=== PATIENT | female | born 1955 | race Caucasian/White ===

== ENCOUNTER 2016-03-24 17:19 | Emergency (ER) | payer BC ==
[~2016-03-24] VITALS: Ht 176.5 cm; Wt 90.9 kg
[~2016-03-24 17:19] MED LIST: AGM875T PO; BUTA-234 PO; CTLP20T; DIPH50CA33 PO; ESOM20SU; EST5V5 IM; FAMO-119 PO; GABA300S2 PO; HYDR-3714 PO; LEVO250T7 PO; PHEN200T27 PO; PNT40TEC PO; PRAV40TA PO; PRED20TA PO; PREG75CA; PREG75CA PO; PROP1TAB77 PO; RNT150T PO; SCR1T PO; SRTR100T PO; SUCR1ORA5 PO; TRAM50TA2 PO
[2016-03-24] MEDS ORDERED: OFLO5DRO7 OT (18:26)
[2016-03-24] MEDS ORDERED: HYDR-3812 PO (18:26)
--- NOTE | 2016-03-24 18:27 | ED EENT ---
History of Present Illness General Chief Complaint: Ear Problems Stated Complaint: RT EAR PAIN Nursing Triage Note: PT. HAS BEEN SICK SINCE LAST THURSDAY WITH WHAT SHE THOUGHT WAS FLU LIKE SXS. STATED SHE WENT TO [facility] TODAY ET THEY PUT HER ON AUGMENTIN. WENT HOME AND HAD REALLY BAD PAIN ET HEARD GURGLING SOUND IN HER R-EAR. PT. STATES SHE WENT BACK TO [facility] ET WAS SENT HERE. PT. STATES SHE CANNOT HEAR FROM THAT EAR. BLOODY DRAINAGE NOTED TO EAR. PT. DOES GET DIZZY WHEN WALKING. Source: patient Exam Limitations: no limitations History of Present Illness Time seen by provider: 18:15 Initial Comments 61 yo female patient presents to the ED with c/o rt ear pain. patient states she has not felt well since last Thursday. Patient was seen earlier today at [facility] and placed on augmentin. Patient reports this evening heard a "gurgling sound" in the right ear with severe pain. Patient states she went back to [facility] and was sent to the emergency department. Reports decreased hearing in the right ear as well as bloody drainage. Does complain of dizziness with ambulation. Timing/Duration: abrupt (sudden onset of severe rt ear pain.), this evening, last week Location: ear (R) Prearrival Treatment: over the counter meds, prescription meds Presenting Symptoms/Injuries: rt ear pain with bloody drainage. Modifying Factors: Worse With Other (palpation) Allergies and Home Medications Allergies Coded Allergies: butorphanol (Unverified Allergy, Mild, 06/16/09) sulfamethoxazole (Unverified Allergy, Mild, 06/16/09) trimethoprim (Unverified Allergy, Mild, 06/16/09) Home Medications Estradiol Cypionate 25 Mg/5 Ml Inj 25 MG IM UD (Reported) Famotidine 20 Mg Tablet #60 20 MG PO BID Prescribed by: NATHALY VINCENT on 04/13/152028 Gabapentin 300 Mg/6 Ml Solution 300 MG PO TID (Reported) Hydrocodone/Acetaminophen 1 Each Tablet #20 1 EACH PO Q4H PRN PRN PAIN Prescribed by: NEYDA GONZALEZ on 03/24/161825 Ofloxacin 5 Ml Drops #1 10 DROPS OT DAILY 10 drops to the rt ear daily x7-10 days Prescribed by: NEYDA GONZALEZ on 03/24/161825 Sucralfate 1 Gm/10 Ml Oral.susp #120 1 GM PO AC Prescribed by: NATHALY VINCENT on 04/13/152028 Tramadol HCl 50 Mg Tablet #24 50-100 MG PO Q6H PRN PRN PAIN Prescribed by: NATHALY VINCENT on 04/13/152029 Review of Systems Constitutional: see HPI chills dizzinessNo fever, malaise Eyes: No Symptoms Reported Ears: See HPI Dizziness Pain Bloody Discharge Nose: congestiondenies pain Mouth: no symptoms reported Throat: no symptoms reported Respiratory: no symptoms reported Cardiovascular: no symptoms reported Gastrointestinal: no symptoms reported Musculoskeletal: no symptoms reported Skin: no symptoms reported Neurological: No Symptoms Reported All Other Systems Reviewed Negative Unless Noted: Yes (Negative excepted noted.) Past Ljottsi-Soqrpc-Xeckhn Hx Patient Social History Recent Foreign Travel: No Contact w/Someone Who Travel: No Recent Infectious Disease Expo: No Immunizations Up To Date Date of Influenza Vaccine: Dec 27, 2014 Seasonal Allergies Seasonal Allergies: Yes Surgeries HX Surgeries: Yes (BACK, BLADDER SLING) Surgeries: Bladder Surgery, Section, Gallbladder, Hysterectomy, Orthopedic Respiratory Hx Respiratory Disorders: No Cardiovascular Hx Cardiac Disorders: Yes (heart cath done-no problem) Neurological Hx Neurological Disorders: Yes Neurological Disorders: Headaches /Migraines Reproductive System Hx Reproductive Disorders: Yes Sexually 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 Genitourinary Hx Genitourinary Disorders: Yes (BLADDER ISSUES) Gastrointestinal Hx Gastrointestinal Disorders: Yes (ULCERS) Musculoskeletal Hx Musculoskeletal Disorders: Yes (FIBROMYALGIA) Endocrine Hx Endocrine Disorders: No HEENT HX ENT Disorders: No Cancer Hx Cancer: No Psychosocial Hx Psychiatric Problems: No Integumentary HX Skin/Integumentary Disorder: No Blood Transfusions Hx Blood Disorders: No Reviewed Nursing Assessment Reviewed/Agree w Nursing PMH: Yes Family Medical History Significant Family History: No Pertinent Family Hx Physical Exam Vital Signs General Appearance: WD/WN no apparent distress Eyes: bilateral eye EOMI, bilateral eye PERRL, bilateral eye normal inspection Ears: right ear bleeding (external ear canal filled with blood. TM not visible.), right ear other (TTP with movement of the auricle/tragus.), right ear tenderness, left ear TM normal, left ear canal normal, bilateral ear auricle normal Nose: normal inspection Mouth/Throat: normal mouth inspectionNo excessive drooling, No trismus, No uvula swelling, No voice changes, other ((+) pharyngeal erythema.) Neck: non-tender supple lymphadenopathy (R) lymphadenopathy (L) Cardiovascular: regular rate, rhythm no murmur Respiratory: lungs clear normal breath sounds no respiratory distress Neurologic/Psychiatric: alert normal mood/affect oriented x 3 Skin: normal color warm/dry Progress/Results/Core Measures Results/Orders Vital Signs/I&O Blood Pressure Mean: 105 Departure Communication Progress Notes Patient seen and evaluated. Proceed with discharge to home with continuing Augmentin as well as addition of hydrocodone and ofloxacin otic drops. Patient follow-up with her PCP as an outpatient for recheck. Impression Impression: Primary Impression: Right otitis media with spontaneous rupture of eardrum Disposition: HOME, SELF-CARE Condition: Improved Departure-Patient Inst. Decision time for Depature: 18:24 Referrals: HALI PATHAK MD,LOCAL PHYSICIAN (PCP) Primary Care Physician [facility] [place] Patient Instructions: Ruptured Eardrum (DC) Add. Discharge Instructions: All discharge instructions reviewed with patient and/or family. Voiced understanding. Medications as instructed. Ibuprofen 800 mg by mouth every 8 hours as needed for pain. Avoid water or cold air in the right ear. Heating pad or pack if needed for pain. Follow-up with Dr. Pathak or your primary care physician for recheck. Return to the emergency department for worsened pain, drainage, fever, headache, or any other concerns. Scripts Hydrocodone/Acetaminophen (Hydrocodon -Acetaminophen 5-325)1 Each Tablet1 Each PO Q4H PRN PAIN #20 TAB Ref 0 Prov:NEYDA GONZALEZ 03/24/16 Ofloxacin 5 Ml Drops10 Drops OT DAILY #1 EA Ref 0 10 drops to the rt ear daily x7-10 days Prov:NEYDA GONZALEZ 03/24/16 Work/School Note: Work Release Form Date Seen in the Emergency Department: Mar 24, 2016 Return to Work: Mar 27, 2016 NEYDA GONZALEZ Mar 24, 2016 18:27
[2016-03-24 18:33] VITALS: BP 156/80
== END 2016-03-24 18:35 | disposition home or self-care (01) ==
LOC: EDUNIT# 17:19 → ER 17:21
DX: H66.011 Acute suppurative otitis media with spontaneous rupture of ear drum, right ear (principal)
CPT/HCPCS: 99282

== ENCOUNTER → 2016-04-07 | Outpatient (CLI) | payer BC ==
[~2016-04-07] MED LIST changes: +CATHETER FLUSH 10 ML SYR IV PRN; +HYDR-3812 PO; +IOHEXOL 350 MG/ML 100 ML (OMNIPAQUE 350) VIAL IV ONE; +NS 100 ML (IVPB) BAG IV ONE; +OFLO5DRO7 OT
[2016-04-07 11:52] LABS: BLOOD UREA NITROGEN 14 MG/DL (7-18); BUN/CREATININE RATIO 20; CREATININE SERUM 0.69 MG/DL (0.60-1.30); GFR ESTIMATED > 60
--- NOTE | 2016-04-07 13:18 | Diagnostic Imaging Report ---
PROCEDURE: CT head and IAC with and without contrast. TECHNIQUE: Multiple contiguous axial images were obtained through the brain before and after the administration of intravenous contrast. In addition, pre- and post-contrast images with thin sections are performed along the IAC with axial and coronal reconstructions performed. INDICATION: Right ear perforation. Dizziness and nausea. CONTRAST: 80 mL of Omnipaque 350 is administered intravenously. FINDINGS: CT head: There is no intracranial hemorrhage, edema, or mass effect. The brain parenchyma and boyd-white matter differentiation is preserved. There is a nonspecific hypodensity measuring 8 mm in the left basal ganglia which may relate to a perivascular space. The phase obtained after contrast administration demonstrates no enhancing mass in the brain or the extra-axial space. The calvarium appears grossly unremarkable. CT IAC: There is opacification in the mastoid air cells on the right side and mild opacification within the right middle ear cavity around the ossicles. There is no significant erosion demonstrated in the ossicles or within the other osseous structures in the right mastoid air cells and the inner ears. There is no evidence of dehiscence along the jugular or carotid canals with preserved osseous separation. No high-riding variation of the jugular bulb on either side either. There is no obvious enhancement noted after contrast administration in the soft tissue densities within the mastoid air cells and middle ear cavities. The internal auditory canals, the semicircular canals, the cochlea, and the vestibule all appear symmetric. To a lesser extent, similar findings in the left mastoid air cells and the middle ear cavity where the mucosal thickening is seen. The external auditory canals on both sides appear clear and patent. There is minimal thickening of the tympanic membrane, however, on the right side. IMPRESSION: There is partial opacification of the mastoid air cells and middle ear cavities around the ossicles on both sides but more prominent on the right side with associated mild thickening in the right tympanic membrane. No bony or ossicle erosions. The findings are likely related to mastoiditis and otitis media. Correlate clinically. Dictated by: Dictated on workstation # [id number]
== END ==
LOC: RAD 10:56
PROVIDERS: ATTEND Otolaryngology Otolaryngology/Facial Plastic Surgery
DX: H92.21 Otorrhagia, right ear (principal)
CPT/HCPCS: 36415; 70470; 82565; 84520

== ENCOUNTER → 2016-09-19 | Outpatient (CLI) | payer BC ==
[~2016-09-19] MED LIST changes: -CATHETER FLUSH 10 ML SYR IV PRN; +GADOBUTROL 10 MMOL/10 ML (GADAVIST) VIAL IV ONE; -IOHEXOL 350 MG/ML 100 ML (OMNIPAQUE 350) VIAL IV ONE; -NS 100 ML (IVPB) BAG IV ONE
--- NOTE | 2016-09-19 16:18 | Diagnostic Imaging Report ---
INDICATION: Back pain with bilateral leg pain and numbness, history of previous lumbar surgery. MRI of lumbar spine obtained pre and post IV contrast and compared to 12/17/11. FINDINGS: Patient has had previous lumbar fusion posteriorly at L4-L5, with disc prosthesis. The lumbar vertebrae are normal in height and alignment. There is no subluxation. Conus medullaris and cauda equina appear unremarkable. At L5-S1, there is some facet degenerative change and ligamentum flavum prominence. These findings do not cause significant canal stenosis. There is perhaps minimal disc bulging. At L4-L5, there has been prior fusion as above with disc prosthesis. The canal appears widely patent at the L4-L5 level with no canal or neuroforaminal stenosis. At L3-L4, there is high-grade central canal stenosis with minimal canal diameter of about 5-6 mm. There is facet joint hypertrophy with ligamentum prominence as well as diffuse disc bulging. At L2-L3, L1-L2 and T12-L1, imaging was unremarkable. Postcontrast images demonstrate no abnormal contrast-enhancing lesions. IMPRESSION: Postoperative changes at L4-L5 with no significant recurrent canal stenosis at the L4-L5 level. There is, however, significant canal stenosis at L3-L4 due to disc bulge and facet joint hypertrophy and ligamentum flavum prominence. Remaining levels were unremarkable, except for some mild degenerative changes at L5-S1. Dictated by: Dictated on workstation # [id number]
== END ==
LOC: RAD 10:14
PROVIDERS: ATTEND Nurse Practitioner Family
DX: M48.06 Spinal stenosis, lumbar region (principal); Z98.890 Other specified postprocedural states
CPT/HCPCS: 72158

== ENCOUNTER 2019-05-03 14:00 | Outpatient (CLI) | payer BC ==
[~2019-05-03] VITALS: Ht 175 cm; Wt 95.4 kg
[~2019-05-03 14:00] MED LIST changes: +ACHD5005 PO; -GADOBUTROL 10 MMOL/10 ML (GADAVIST) VIAL IV ONE; -HYDR-3812 PO; +OFLO5DRO33 OT; -OFLO5DRO7 OT; -TRAM50TA2 PO; +TRM50T PO
[2019-05-03] MEDS ORDERED: GBPN600T PO (14:14)
[2019-05-03] MEDS ORDERED: TRIA1CAP4 PO (14:14)
[2019-05-03] MEDS ORDERED: BUTA1CAP41 PO (14:14)
[2019-05-03] MEDS ORDERED: OMEP20TA33 PO (14:14)
== END 2019-05-03 15:22 | disposition home or self-care (01) ==
LOC: PREOP 14:00
PROVIDERS: ATTEND Surgery
DX: Z01.818 Encounter for other preprocedural examination (principal)

== ENCOUNTER 2019-11-23 05:45 | Outpatient (CLI) | payer BC ==
[~2019-11-23] VITALS: Ht 175.3 cm; Wt 100.0 kg
[~2019-11-23 05:45] MED LIST changes: +BUTA1CAP41 PO; +GBPN600T PO; +OMEP20TA33 PO; +TRIA1CAP4 PO
[2019-11-23] MEDS ORDERED: GABA300C PO ×2 (14:02)
[2019-11-23] MEDS ORDERED: HYDR25TA4 PO ×2 (14:02)
== END 2019-11-23 14:07 ==
LOC: PREOP 05:45
PROVIDERS: ATTEND Specialist
DX: Z01.818 Encounter for other preprocedural examination (principal)

== ENCOUNTER 2019-11-25 06:05 | Day surgery (SDC) | payer BC ==
[~2019-11-25] VITALS: Ht 180.3 cm; Wt 100.0 kg
[~2019-11-25 06:05] MED LIST changes: +GABA300C PO; +HYDR25TA4 PO
[2019-11-25] MEDS ORDERED: TIMOLOL MALEATE 0.5% 5 ML (TIMOPTIC) BTL OU PRN (06:15)
[2019-11-25] MEDS ORDERED: LIDOCAINE PF 1% 2 ML VIAL IR PRN (06:15)
[2019-11-25] MEDS ORDERED: MOXIFLOXACIN OPHTH SOLN 5 MG/ML 0.3 ML SYRINGE OP ONE (06:15)
[2019-11-25] MEDS ORDERED: POVIDONE (BETADINE) OPHTH SOLN 5% 30 ML OP ONE (06:15)
[2019-11-25 06:24] VITALS: BP 153/80
[2019-11-25] MEDS ORDERED: ONDANSETRON 4 MG/2 ML (SDV) Z0FRAN ONE (06:25)
[2019-11-25] MEDS: TETRACAINE 0.5% OPHTH SOLN 4 ML BTL (SINGLE DOSE ONLY) OU PRN ×4 (06:27→06:59)
[2019-11-25] MEDS ORDERED: ONDANSETRON 4 MG/2 ML (SDV) Z0FRAN IV ONE (06:30)
[2019-11-25] MEDS ORDERED: MIDAZOLAM 2 MG/2 ML (VERSED) VIAL ONE ×3 (06:36→06:43)
[2019-11-25] MEDS: CYCLOPENTOLATE 1% (CYCLOGYL) 2 ML DROPS OP SCH ×3 (06:43→06:59)
[2019-11-25] MEDS: PHENYLEPHRINE 10% OPHTH (NEO-SYN) 5 ML BTL OU SCH ×3 (06:43→06:59)
[2019-11-25] MEDS ORDERED: MIDAZOLAM 2 MG/2 ML (VERSED) VIAL IV ONE (06:45)
--- NOTE | 2019-11-25 06:58 | Ophthalmologist Pre-Op Note ---
Pre-Operative Progress Note H&P Reviewed The H&P was reviewed, patient examined and no changes noted. Date H&P Reviewed: Nov 25, 2019 Time H&P Reviewed: 06:57 Pre-Op Dx Cataract, Left Eye LUISA MATHEW MD Nov 25, 2019 06:58
--- NOTE | 2019-11-25 07:22 | Ophthalmology Operative Report ---
Cataract removal/placement IOL PREOPERATIVE DIAGNOSIS: Cataract Left Eye POSTOPERATIVE DIAGNOSIS: Cataract Left Eye PROCEDURE: Cataract removal and placement of posterior chamber implant, left eye SURGEON: Kevin Mathew ANESTHESIA: Topical with sedation COMPLICATIONS: None ESTIMATED BLOOD LOSS: Minimal DESCRIPTION OF PROCEDURE: After proper informed consent was obtained, the patient, a 64 female, was taken to the Operating Room and the left eye was anesthetized with tetracaine. The left eye was then prepped and draped in the usual manner. A wire lid speculum was placed. A paracentesis was made at the left hand position. Preservative free lidocaine was injected into the anterior chamber followed by viscoelastic. A clear corneal incision was made in the temporal position. A capsulorrhexis was preformed and the central nuclear and cortical material were removed. The posterior capsule was polished and an Liban 18.5 AU00T0 was placed into the capsular bag. The residual viscoelastic was aspirated and balanced saline solution was injected into the anterior chamber. Moxifloxacin was injected into the anterior chamber. The wound was checked and found to be water tight. The patient tolerated the procedure well without complications. KEVIN MATHEW MD Nov 25, 2019 07:22
[2019-11-25] MEDS ORDERED: acetaZOLAMIDE ER 500 MG CAP (DIAMOX SEQUELS) PO ONE (07:30)
[2019-11-25 07:31] VITALS: BP 137/80
--- NOTE | 2019-11-25 10:43 | Anesthesia-General Post-Op ---
MAC Patient Condition Mental Status/LOC: Same as Preop Cardiovascular: Satisfactory Nausea/Vomiting: Absent Respiratory: Satisfactory Pain: Controlled Complications: Absent Post Op Complications Complications None Follow Up Care/Instructions Patient Instructions None needed. Anesthesiology Discharge Order Discharge Order Patient is doing well, no complaints, stable vital signs, no apparent adverse anesthesia problems. No complications reported per nursing. CESARIO RODRIGUEZ CRNA Nov 25, 2019 10:43
== END 2019-11-25 07:30 | disposition home or self-care (01) ==
LOC: SDC 06:05
PROVIDERS: ATTEND Specialist
DX: H25.12 Age-related nuclear cataract, left eye (principal); I10 Essential (primary) hypertension; K21.9 Gastro-esophageal reflux disease without esophagitis; G47.00 Insomnia, unspecified; E78.00 Pure hypercholesterolemia, unspecified; Z79.899 Other long term (current) drug therapy
CPT/HCPCS: 66984; V2632

== ENCOUNTER 2019-12-07 11:30 | Outpatient (RCR) | payer BC | END 2020-03-06 | LOC: CARD 11:30 | PROVIDERS: ATTEND Internal Medicine | DX: I49.1 Atrial premature depolarization (principal) ==

== ENCOUNTER 2019-12-23 06:07 | Day surgery (SDC) | payer BC ==
[~2019-12-23] VITALS: Ht 180 cm; Wt 100.0 kg
[2019-12-23] MEDS ORDERED: POVIDONE (BETADINE) OPHTH SOLN 5% 30 ML OP ONE (06:15)
[2019-12-23] MEDS ORDERED: LIDOCAINE PF 1% 2 ML VIAL IR PRN (06:15)
[2019-12-23] MEDS ORDERED: TIMOLOL MALEATE 0.5% 5 ML (TIMOPTIC) BTL OU PRN (06:15)
[2019-12-23] MEDS ORDERED: MOXIFLOXACIN OPHTH SOLN 5 MG/ML 0.3 ML SYRINGE OP ONE (06:15)
[2019-12-23 06:16] VITALS: BP 148/93
[2019-12-23] MEDS: TETRACAINE 0.5% OPHTH SOLN 4 ML BTL (SINGLE DOSE ONLY) OU PRN ×4 (06:30→06:45)
[2019-12-23] MEDS: CYCLOPENTOLATE 1% (CYCLOGYL) 2 ML DROPS OP SCH ×3 (06:33→06:45)
[2019-12-23] MEDS: PHENYLEPHRINE 10% OPHTH (NEO-SYN) 5 ML BTL OU SCH ×3 (06:33→06:45)
[2019-12-23] MEDS ORDERED: MIDAZOLAM 2 MG/2 ML (VERSED) VIAL ONE ×2 (06:35→07:00)
[2019-12-23] MEDS ORDERED: ONDANSETRON 4 MG/2 ML (SDV) Z0FRAN ONE (06:35)
--- NOTE | 2019-12-23 06:51 | Ophthalmologist Pre-Op Note ---
Pre-Operative Progress Note H&P Reviewed The H&P was reviewed, patient examined and no changes noted. Date H&P Reviewed: Dec 23, 2019 Time H&P Reviewed: 06:51 Pre-Op Dx Cataract, Right Eye ULISA MATHEW MD Dec 23, 2019 06:51
--- NOTE | 2019-12-23 07:16 | Ophthalmology Operative Report ---
Cataract removal/placement IOL PREOPERATIVE DIAGNOSIS: Cataract Right Eye POSTOPERATIVE DIAGNOSIS: Cataract Right Eye PROCEDURE: Cataract removal and placement of posterior chamber implant, right eye SURGEON: Kevin Mathew ANESTHESIA: Topical with sedation COMPLICATIONS: None ESTIMATED BLOOD LOSS: Minimal DESCRIPTION OF PROCEDURE: After proper informed consent was obtained, the patient, a 64 female, was taken to the Operating Room and the right eye was anesthetized with tetracaine. The right eye was then prepped and draped in the usual manner. A wire lid speculum was placed. A paracentesis was made at the left hand position. Preservative free lidocaine was injected into the anterior chamber followed by viscoelastic. A clear corneal incision was made in the temporal position. A capsulorrhexis was preformed and the central nuclear and cortical material were removed. The posterior capsule was polished and Liban 19.5 AU00T0 IOL was placed into the capsular bag. The residual viscoelastic was aspirated and balanced saline solution was injected into the anterior chamber. Moxifloxacin was injected into the anterior chamber. The wound was checked and found to be water tight. The patient tolerated the procedure well without complications. KEVIN MATHEW MD Dec 23, 2019 07:16
[2019-12-23] MEDS ORDERED: acetaZOLAMIDE ER 500 MG CAP (DIAMOX SEQUELS) PO ONE (07:20)
[2019-12-23 07:25] VITALS: BP 131/70
--- NOTE | 2019-12-23 11:15 | Anesthesia-General Post-Op ---
MAC Patient Condition Mental Status/LOC: Same as Preop Cardiovascular: Satisfactory Nausea/Vomiting: Absent Respiratory: Satisfactory Pain: Controlled Complications: Absent Post Op Complications Complications None Follow Up Care/Instructions Patient Instructions None needed. Anesthesiology Discharge Order Discharge Order Patient is doing well, no complaints, stable vital signs, no apparent adverse anesthesia problems. No complications reported per nursing. ALEXANDER AARON LAUNDROMAT WORKER Dec 23, 2019 11:15
== END 2019-12-23 07:25 | disposition home or self-care (01) ==
LOC: SDC 06:07
PROVIDERS: ATTEND Specialist
DX: H25.11 Age-related nuclear cataract, right eye (principal); I10 Essential (primary) hypertension; E78.00 Pure hypercholesterolemia, unspecified; K21.9 Gastro-esophageal reflux disease without esophagitis; G47.00 Insomnia, unspecified; Z79.899 Other long term (current) drug therapy; Z87.19 Personal history of other diseases of the digestive system; Z88.8 Allergy status to other drugs, medicaments and biological substances
CPT/HCPCS: 66984; V2632

== ENCOUNTER → 2020-03-14 | Outpatient (CLI) | payer BC ==
--- NOTE | 2020-03-14 12:55 | Diagnostic Imaging Report ---
EXAMINATION: Lumbar spine at 1143 hours. INDICATION: Back pain. Five views were obtained. The previous MRI lumbar spine exam of 09/19/2016 noted postsurgical changes consistent with fusion of L4 and L5. In the interval since the prior exam the patient has undergone another surgical procedure and there are now bilateral pedicle screws in place at L3, L4 and L5. There is also an interbody device again noted at the L4-L5 level. The orthopedic hardware seems to be in good position. The lateral view does show minimal retrolisthesis of L2 with respect to L3 and there is mild narrowing of the disc space at this level. The L1-L2 disc space is fairly well-maintained as is L5-S1. There is still narrowing of the disc space at L3-L4. There is no fracture or acute bony abnormality identified. There is no sign of a paraspinal mass. There are number of small radiopaque densities overlying the abdomen and pelvis. These are probably related to ingested medication. The sacroiliac joints are within normal limits. IMPRESSION: 1. In the interval since the prior exam the fusion of the lumbar spine has been extended. There are now bilateral pedicle screws in place at L3, L4 and L5. The orthopedic hardware seems to be in good position. 2. There is no acute bony abnormality appreciated. 3. There is degenerative disc and bony disease at the L2-L3 level. If there is clinical concern regarding spinal stenosis or nerve root encroachment at this level, then MRI of the lumbar spine would be recommended for further evaluation. Dictated by: Dictated on workstation # [id number]
== END ==
LOC: RAD 11:17
PROVIDERS: ATTEND Internal Medicine
DX: M51.36 Other intervertebral disc degeneration, lumbar region (principal); Z98.1 Arthrodesis status
CPT/HCPCS: 72110

== ENCOUNTER → 2020-03-30 | Outpatient (CLI) | payer BC ==
--- NOTE | 2020-03-30 12:56 | Diagnostic Imaging Report ---
PROCEDURE: MRI lumbar spine without contrast. TECHNIQUE: Multiplanar, multisequence MRI of the lumbar spine was performed without contrast. INDICATION: Low back pain. COMPARISON: 09/19/2016. FINDINGS: 5 lumbar type vertebral bodies are visualized with the last well-formed disc space designated L5-S1. No acute fracture or dislocation is seen in the lumbar spine. Posterior fusion changes are visualized from L3 to L5. Laminectomy has been performed from L3 to L5. No focal osseous lesions are identified. Vertebral body heights are maintained. The conus terminates at the L1 level. No masses are seen associated with the conus or nerve roots of the cauda equina. No epidural collections are identified. Multilevel degenerative changes are seen in the lumbar spine with disc bulges, facet hypertrophy, and buckling of the ligamentum flavum. T12-L1: No significant spinal canal or foraminal stenosis. L1-L2: No significant spinal canal or foraminal stenosis. L2-L3: Broad-based disc bulge with central disc extrusion, facet hypertrophy, and buckling of the ligamentum flavum results in moderate spinal canal stenosis and moderate right and [id number] left foraminal stenosis. L3-L4: Facet hypertrophy results in no significant spinal canal narrowing and mild right and no left foraminal narrowing. L4-L5: Facet hypertrophy results in no significant spinal canal narrowing and no significant foraminal narrowing. L5-S1: Broad-based disc bulge, facet hypertrophy, and buckling of the ligamentum flavum results in moderate spinal canal stenosis and moderate left and [id number] right foraminal stenosis. IMPRESSION: 1. No acute fracture or dislocation in the lumbar spine. 2. Multilevel degenerative changes in the lumbar spine, greatest at L2-L3 and L5-S1. These findings have worsened since the prior exam from 2016. 3. Postsurgical changes of posterior fusion from L3 to L5 and laminectomy from L3 to L5. Dictated by: Dictated on workstation # [id number]
== END ==
LOC: RAD 09:30
PROVIDERS: ATTEND Internal Medicine
DX: M47.817 Spondylosis without myelopathy or radiculopathy, lumbosacral region (principal); Z98.890 Other specified postprocedural states
CPT/HCPCS: 72148

== ENCOUNTER → 2020-04-27 | Outpatient (CLI) | payer BC | LOC: LABNPT 05:30 | PROVIDERS: ATTEND Neurological Surgery | DX: Z20.822 Contact with and (suspected) exposure to COVID-19 (principal) ==

== ENCOUNTER 2020-09-05 10:30 | Outpatient (RCR) | payer BC | END 2020-09-10 | disposition home or self-care (01) | PROVIDERS: ATTEND Neurological Surgery | DX: Z98.1 Arthrodesis status (principal) ==

== ENCOUNTER 2020-10-02 14:30 | Outpatient (RCR) | payer BC | END 2020-12-10 | disposition home or self-care (01) | PROVIDERS: ATTEND Neurological Surgery | DX: Z09 Encounter for follow-up examination after completed treatment for conditions other than malignant neoplasm (principal); Z98.1 Arthrodesis status; K21.9 Gastro-esophageal reflux disease without esophagitis; I10 Essential (primary) hypertension ==

== ENCOUNTER → 2021-02-15 | Outpatient (CLI) | payer BC ==
--- NOTE | 2021-02-18 14:18 | Diagnostic Imaging Report ---
EXAMINATION: Digital mammogram bilateral screening with CAD. INDICATION: Screening. COMPARISON: There are no prior studies available for comparison. PERSONAL HISTORY: At this time, there are no current complaints. FINDINGS: The fibroglandular tissue in both breasts is heterogeneously dense. This does limit the sensitivity of this exam. There is no primary or secondary sign of malignancy noted. IMPRESSION: 1. There is no evidence for malignancy. 2. The patient should have her annual bilateral screening mammogram on schedule in January 2022. ACR BI-RADS Category 1: Negative. Result letter will be mailed to the patient. Note: At least 10% of breast cancer is not imaged by mammography. Dictated by: Dictated on workstation # [id number]
== END ==
LOC: RAD 10:00
PROVIDERS: ATTEND Internal Medicine
DX: Z12.31 Encounter for screening mammogram for malignant neoplasm of breast (principal)
CPT/HCPCS: 77063; 77067

== ENCOUNTER 2021-04-22 11:23 | Emergency (ER) | payer BC ==
[~2021-04-22] VITALS: Ht 175.3 cm; Wt 99.7 kg
[2021-04-22] MEDS ORDERED: LACTATED RINGERS 1,000 ML IV SCH (12:00)
[2021-04-22] MEDS ORDERED: ONDANSETRON 4 MG/2 ML (SDV) Z0FRAN IVP ONE (12:00)
[2021-04-22 12:06] LABS: BASOPHILS % (AUTO) 1 % (0-10); EOSINOPHILS # (AUTO) 0.1 10^3/uL (0.0-0.3); EOSINOPHILS % (AUTO) 2 % (0-10); HEMATOCRIT 40 % (35-52); HEMOGLOBIN 12.5 g/dL (11.5-16.0); LYMPHOCYTES # (AUTO) 2.6 10^3/uL (1.0-4.0); LYMPHOCYTES % (AUTO) 43 % (12-44); MEAN CORPUSCULAR HEMOGLOBIN 27 pg (25-34); MEAN CORPUSCULAR HGB CONC 32 g/dL (32-36); MEAN CORPUSCULAR VOLUME 85 fL (80-99); MEAN PLATELET VOLUME 10.3 fL (9.0-12.2); MONOCYTES # (AUTO) 0.6 10^3/uL (0.0-1.0); MONOCYTES % (AUTO) 10 % (0-12); NEUTROPHILS # (AUTO) 2.7 10^3/uL (1.8-7.8); NEUTROPHILS % (AUTO) 45 % (42-75); PLATELET COUNT 195 10^3/uL (130-400); WHITE BLOOD COUNT 6.1 10^3/uL (4.3-11.0)
[2021-04-22 12:18] LABS: ALANINE AMINOTRANSFERASE 13 U/L (0-55); ALBUMIN 4.1 GM/DL (3.2-4.5); ALKALINE PHOSPHATASE 97 U/L (40-136); BILIRUBIN,TOTAL 0.3 MG/DL (0.1-1.0); BUN/CREATININE RATIO 29; CARBON DIOXIDE 25 MMOL/L (21-32); CHLORIDE 101 MMOL/L (98-107); CREATININE SERUM 0.73 MG/DL (0.60-1.30); GFR ESTIMATED 92; GLUCOSE 90 MG/DL (70-105); POTASSIUM 3.9 MMOL/L (3.6-5.0); SODIUM 135 MMOL/L (135-145); TOTAL PROTEIN 7.7 GM/DL (6.4-8.2)
--- NOTE | 2021-04-22 12:22 | ED Cardiac General ---
History of Present Illness General Chief Complaint: Cardiac/General Problems Stated Complaint: WEAKNESS, NAUSEA, HEADACHE Nursing Triage Note: PT TO RM 6 BY WHEELCHAIR WITH COMPLAINT OF NAUSEA, DIZZINESS, HEADACHE THAT STARTED AT 10 AM. STATES TOOK BP AT WORK AND IT WAS 180s SYSTOLIC. Source: patient Exam Limitations: no limitations History of Present Illness Date Seen by Provider: Apr 22, 2021 Time Seen by Provider: 11:33 Initial Comments 66-year-old female with past medical history of hypertension coming in due to nausea, lightheadedness, and headache starting around 10 AM this morning. She was at work and noticed her blood pressure was elevated after this occurred. She takes hydrochlorothiazide 12 mg at night which she did take last night. [place] like she was just generally weak but nothing focal at the time. Denies any chest pain, shortness of breath, abdominal pain, vomiting, diarrhea, cough, fever, rash, or any other concerns. Allergies and Home Medications Allergies Coded Allergies: butorphanol (Unverified Allergy, Severe, HALLUCINATIONS, 05/03/19) sulfamethoxazole (Unverified Allergy, Mild, RASH, 05/03/19) trimethoprim (Unverified Allergy, Mild, RASH, 05/03/19) Patient Home Medication List Home Medication List Reviewed: Yes Butalb/Acetaminophen/Caffeine (Dpkjqf-Clilijti-Hhrx 50-300-40) 1 Each Capsule, 1 EACH PO PRN, (Reported) Entered as Reported by: ERIN MERCHANT on 05/03/19 1414 Gabapentin (Neurontin) 300 Mg Capsule, 300 MG PO BID, (Reported) Entered as Reported by: MATT CUNNINGHAM on 11/23/19 1402 Hydrochlorothiazide (Hydrochlorothiazide) 25 Mg Tablet, 25 MG PO DAILY, (Reported) Entered as Reported by: MATT CUNNINGHAM on 11/23/19 1402 Omeprazole Magnesium (Prilosec Otc) 20 Mg Tablet.dr, 20 MG PO DAILY, (Reported) Entered as Reported by: ERIN MERCHANT on 05/03/19 1414 Ondansetron (Ondansetron Odt) 4 Mg Tab.rapdis, 4 MG PO Q6H PRN for NAUSEA/VOMITING-1ST LINE Prescribed by: JACQUELIN ADAN on 04/22/21 1405 Review of Systems Review of Systems Constitutional: No chills, No fever EENTM: No Blurred Vision Respiratory: Denies Cough, Denies Shortness of Air Cardiovascular: Denies Chest Pain Gastrointestinal: Denies Abdominal Pain, Denies Diarrhea; Nausea; Denies Vomiting Genitourinary: Denies Burning Musculoskeletal: no symptoms reported Skin: no symptoms reported Psychiatric/Neurological: No Symptoms Reported Endocrine: No Symptoms Reported Hematologic/Lymphatic: No Symptoms Reported All Other Systems Reviewed Negative Unless Noted: Yes Past Zkiosqi-Rgpraw-Iftmse Hx Patient Social History Tobacco Use?: No Use of E-Cig and/or Vaping dev: No Substance use?: No Alcohol Use?: No Pt feels they are or have been: No Immunizations Up To Date Tetanus Booster (TDap): Unknown Influenza Vaccine Up-to-Date: Yes; Up-to-Date First/Initial COVID19 Vaccinat: SPRING 2020 Second COVID19 Vaccination Carlos: SPRING 2020 COVID19 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: [employer] Seasonal Allergies Seasonal Allergies: No Past Medical History Surgeries: Yes (BACK X2, BLADDER SLING) Bladder Surgery, Section, Gallbladder, Hysterectomy, Orthopedic Respiratory: No Currently Using CPAP: No Currently Using BIPAP: No Cardiac: Yes (heart cath done-no problem, PVC'S) Hypertension Neurological: Yes Headaches /Migraines 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 Sexually Transmitted Disease: No HIV/AIDS: No Gastrointestinal: Yes Gastroesophageal Reflux, Chronic Constipation, Chronic Diarrhea, Ulcer Musculoskeletal: Yes (JOINT PAIN ) Chronic Back Pain Endocrine: No HEENT: No Loss of Vision: Denies Hearing Impairment: Denies Cancer: No Psychosocial: Yes (MILD SEASONAL ) Depression Integumentary: No Blood Disorders: No Adverse Reaction/Blood Tranf: No (N/A) Family Medical History No Pertinent Family Hx Physical Exam Vital Signs Vital Signs - First Documented 04/22/21 11:32 Pulse 59 Resp 16 B/P (MAP) 191/102 (131) Pulse Ox 98 O2 Delivery Room Air Capillary Refill : Less Than 3 Seconds Height, Weight, BMI Height: 5'9.50" Weight: 200lbs. 6.0oz. 90.458137hm; 32.00 BMI Method:Estimated General Appearance: No Apparent Distress, WD/WN HEENT: PERRL/EOMI, Normal ENT Inspection, Pharynx Normal Neck: Full Range of Motion, Normal Inspection, Non Tender, Supple Respiratory: Chest Non Tender, Lungs Clear, Normal Breath Sounds, No Accessory Muscle Use, No Respiratory Distress Cardiovascular: Regular Rate, Rhythm, No Edema, Normal Peripheral Pulses Gastrointestinal: Normal Bowel Sounds, Non Tender, Soft; No Distended, No Guarding Extremity: Normal Capillary Refill, Normal Inspection, Normal Range of Motion, Non Tender, No Calf Tenderness Neurologic/Psychiatric: Alert, No Motor/Sensory Deficits, Normal Mood/Affect Skin: Normal Color, Warm/Dry Lymphatic: No Adenopathy Progress/Results/Core Measures Results/Orders Lab Results Laboratory Tests Test 04/22/21 11:45 04/22/21 12:37 04/22/21 13:42 Range/Units White Blood Count 6.1 4.3-11.0 10^3/uL Red Blood Count 4.63 3.80-5.11 10^6/uL Hemoglobin 12.5 11.5-16.0 g/dL Hematocrit 40 35-52 % Mean Corpuscular Volume 85 80-99 fL Mean Corpuscular Hemoglobin 27 25-34 pg Mean Corpuscular Hemoglobin Concent 32 32-36 g/dL Red Cell Distribution Width 14.6 H 10.0-14.5 % Platelet Count 195 130-400 10^3/uL Mean Platelet Volume 10.3 9.0-12.2 fL Immature Granulocyte % (Auto) 0 % Neutrophils (%) (Auto) 45 42-75 % Lymphocytes (%) (Auto) 43 12-44 % Monocytes (%) (Auto) 10 0-12 % Eosinophils (%) (Auto) 2 0-10 % Basophils (%) (Auto) 1 0-10 % Neutrophils # (Auto) 2.7 1.8-7.8 10^3/uL Lymphocytes # (Auto) 2.6 1.0-4.0 10^3/uL Monocytes # (Auto) 0.6 0.0-1.0 10^3/uL Eosinophils # (Auto) 0.1 0.0-0.3 10^3/uL Basophils # (Auto) 0.0 0.0-0.1 10^3/uL Immature Granulocyte # (Auto) 0.0 0.0-0.1 10^3/uL Sodium Level 135 135-145 MMOL/L Potassium Level 3.9 3.6-5.0 MMOL/L Chloride Level 101 98-107 MMOL/L Carbon Dioxide Level 25 21-32 MMOL/L Anion Gap 9 5-14 MMOL/L Blood Urea Nitrogen 21 H 7-18 MG/DL Creatinine 0.73 0.60-1.30 MG/DL Estimat Glomerular Filtration Rate 92 BUN/Creatinine Ratio 29 Glucose Level 90 70-105 MG/DL Calcium Level 9.0 8.5-10.1 MG/DL Corrected Calcium 8.9 8.5-10.1 MG/DL Total Bilirubin 0.3 0.1-1.0 MG/DL Aspartate Amino Transf (AST/SGOT) 15 5-34 U/L Alanine Aminotransferase (ALT/SGPT) 13 0-55 U/L Alkaline Phosphatase 97 40-136 U/L Troponin I < 0.028 < 0.028 <0.028 NG/ML Total Protein 7.7 6.4-8.2 GM/DL Albumin 4.1 3.2-4.5 GM/DL Influenza Type A Antigen NEGATIVE NEGATIVE Influenza Type B Antigen NEGATIVE NEGATIVE SARS-CoV-2 RNA (RT-PCR) Not Detected Negative My Orders Orders - JACQUELIN ADAN MD Chest 1 View, Ap/Pa Only (04/22/21 12:00) Cbc With Automated Diff (04/22/21 12:00) Comprehensive Metabolic Panel (04/22/21 12:00) Troponin I Peach (04/22/21 12:00) Influenza A & B Antigens (04/22/21 12:00) Ed Iv/Invasive Line Start (04/22/21 12:00) Ekg Tracing (04/22/21 12:00) Covid 19 Inhouse Test (04/22/21 12:00) Hydrochlorothiazide Cap/Tablet (Hctz Cap (04/22/21 12:00) Lactated Ringers (Lr 1000 Ml Iv Solution (04/22/21 12:00) Ondansetron Injection (Zofran Injectio (04/22/21 12:00) Coronavirus Sars-Cov-2 So 2018 (04/22/21 12:37) Troponin I Peach (04/22/21 13:35) Medications Given in ED Current Medications Medications Dose Ordered Sig/Diamante Route Start Time Stop Time Status Last Admin Dose Admin Hydrochlorothiazide 12.5 mg ONCE ONCE PO 04/22/21 12:00 04/22/21 12:03 DC 04/22/21 12:36 12.5 MG Ondansetron HCl 4 mg ONCE ONCE IVP 04/22/21 12:00 04/22/21 12:03 DC 04/22/21 12:19 4 MG Vital Signs/I&O 04/22/21 11:32 Pulse 59 Resp 16 B/P (MAP) 191/102 (131) Pulse Ox 98 O2 Delivery Room Air Blood Pressure Mean: 131 Progress Progress Note : Progress Note 66-year-old female with above history coming in due to general weakness with nausea. ABCs were intact and vitals were stable on presentation. EKG without any acute ischemic changes. Basic labs including normal hemoglobin, normal electrolytes, normal creatinine, undetectable troponin x2. Chest x-ray without any focal abnormalities. Influenza test is negative. Covid test is negative. After liter of IV fluids and Zofran she was feeling slightly better. Unsure of the exact etiology but she is overall well-appearing with normal vitals on reassessment. Believe she is stable for discharge with outpatient f ollow-up. She was sent home with strict return precautions. Initial ECG Impression Date: Apr 22, 2021 Initial ECG Impression Time: 12:16 Initial ECG Rate: 57 Initial ECG Rhythm: Normal Sinus Comment Narrow QRS, normal axis, no significant ST changes, T wave inversion in lead III with flattening in aVF which is nonspecific Diagnostic Imaging Diagonstic Imaging: Xray Plain Films/CT/US/NM/MRI: chest Comments [facility], [place] NAME: CHAPIN CONLEY [facility] REC#: [id number] PT STATUS: REG ER : 1955 PHYSICIAN: JACQUELIN ADAN MD ADMIT DATE: 04/22/21/ER Draft Date of Exam:04/22/21 CHEST 1 VIEW, AP/PA ONLY INDICATION: Weakness. Frontal chest obtained at 12:31 p.m. and compared to 04/13/2015. Heart and mediastinal silhouette are normal in appearance. Lungs are clear. There is no pneumothorax or pleural fluid. IMPRESSION: Negative chest. Dictated on workstation # [id number] Dict: 04/22/21 1248 Trans: 04/22/21 1251 CV [id number] Interpreted by: WILFRID ANTHONY MD Electronically signed by: Departure Impression Primary Impression: Nausea Additional Impression: Light headed Disposition: 01 HOME, SELF-CARE Condition: Stable Departure-Patient Inst. Decision time for Depature: 14:12 Referrals: RENETTA GARAY MD (PCP) Primary Care Physician Patient Instructions: Dizziness, Adult ED Add. Discharge Instructions: You were seen in the emergency department for feeling lightheaded, dizzy, nauseous, and generally just feeling off. Your basic labs are good including normal troponin. Your chest x-ray looked good. Your flu and COVID testing were negative. I am unclear exactly why this happened, it could be possibly related to your elevated blood pressure, so I will just continue to monitor that over the next several days. Be sure to drink plenty of fluids like always. If things worsen I would want you to follow-up with your regular doctor sooner. Scripts Ondansetron (Ondansetron Odt) 4 Mg Tab.rapdis 4 MG PO Q6H PRN for NAUSEA/VOMITING-1ST LINE for 5 Days, #20 TAB Prov: JACQUELIN ADAN MD 04/22/21 Work/School Note: Work Release Form Date Seen in the Emergency Department: Apr 22, 2021 Return to Work: Apr 23, 2021 Restrictions: No Restrictions JACQUELIN ADAN MD Apr 22, 2021 12:22
--- NOTE | 2021-04-22 12:51 | Diagnostic Imaging Report ---
INDICATION: Weakness. Frontal chest obtained at 12:31 p.m. and compared to 04/13/2015. Heart and mediastinal silhouette are normal in appearance. Lungs are clear. There is no pneumothorax or pleural fluid. IMPRESSION: Negative chest. Dictated by: Dictated on workstation # [id number]
[2021-04-22] MEDS ORDERED: ONDA4TAB11 PO (14:05)
[2021-04-22 14:23] VITALS: BP 159/80
== END 2021-04-22 14:27 | disposition home or self-care (01) ==
LOC: EDUNIT# 11:23 → ER 11:25
DX: R11.0 Nausea (principal); R42 Dizziness and giddiness; R53.1 Weakness; I10 Essential (primary) hypertension; K21.9 Gastro-esophageal reflux disease without esophagitis; F32.A Depression, unspecified; G43.909 Migraine, unspecified, not intractable, without status migrainosus; G89.29 Other chronic pain; M54.9 Dorsalgia, unspecified; Z79.899 Other long term (current) drug therapy; Z20.822 Contact with and (suspected) exposure to COVID-19
CPT/HCPCS: 36415; 71045; 80053; 84484; 85025; 87635; 87636; 87804

== ENCOUNTER → 2023-01-30 | Outpatient (CLI) | payer BC ==
[~2023-01-30] MED LIST changes: -GABA300S2 PO; +GABA300S3 PO; +ONDA4TAB11 PO; -TRIA1CAP4 PO; +TRIA1CAP84 PO
--- NOTE | 2023-02-01 18:36 | Diagnostic Imaging Report ---
INDICATION: Screening. EXAMINATION: 3D bilateral screening mammogram with CAD. The current study was also evaluated with a Computer Aided Detection (CAD) system. COMPARISON: This study was compared to the prior exams of 02/15/2021. FINDINGS: The breasts are heterogenously dense, which may obscure small masses. When compared to the previous study, there does not appear to have been any significant change. There is no primary or secondary sign of malignancy noted. IMPRESSION: There is no evidence for malignancy. ACR BI-RADS Category 1: Negative. Result letter will be mailed to the patient. Note: At least 10% of breast cancer is not imaged by mammography. Dictated by: Dictated on workstation # [id number]
== END ==
LOC: RAD 10:17
PROVIDERS: ATTEND Internal Medicine
DX: Z12.31 Encounter for screening mammogram for malignant neoplasm of breast (principal)
CPT/HCPCS: 77063; 77067